=== PATIENT | male | born 1985 | race Caucasian/White ===

== ENCOUNTER → 2020-04-15 | Outpatient (CLI) | payer BC ==
--- NOTE | 2020-04-15 16:22 | Diagnostic Imaging Report ---
EXAMINATION: CHEST 2 VIEWS INDICATION: Bronchitis COMPARISON: None FINDINGS: LINES/TUBES:None LUNGS:The lungs are moderately inflated. Mild right perihilar and left lung base linear opacities. PLEURA:No pleural effusion or pneumothorax. MEDIASTINUM:The cardiomediastinal silhouette appears normal in size and shape. BONES/SOFT TISSUES:No acute osseous injury. ABDOMEN:No free air under the diaphragm. IMPRESSION: Mild right perihilar and left lung base opacities, most likely subsegmental atelectasis. Signed by: Lv Murray MD on 04/15/2020 4:18 PM
== END ==
LOC: RAD 15:18
PROVIDERS: ATTEND Family Medicine
DX: J20.9 Acute bronchitis, unspecified (principal)
CPT/HCPCS: 71046

== ENCOUNTER → 2020-05-15 | Outpatient (CLI) | payer BC ==
--- NOTE | 2020-05-15 13:04 | Diagnostic Imaging Report ---
EXAMINATION: CHEST 2 VIEWS INDICATION: Bronchitis COMPARISON: Chest radiograph 04/15/2020 FINDINGS: LINES/TUBES:None LUNGS:The lungs are well-inflated. No focal consolidation or pulmonary edema. PLEURA:No pleural effusion or pneumothorax. MEDIASTINUM:The cardiomediastinal silhouette appears normal in size and shape. BONES/SOFT TISSUES:No acute osseous injury. ABDOMEN:No free air under the diaphragm. IMPRESSION: No focal pneumonia or pulmonary edema. Signed by: Lv Murray MD on 05/15/2020 1:00 PM
== END ==
LOC: RAD 12:05
PROVIDERS: ATTEND Family Medicine
DX: J40 Bronchitis, not specified as acute or chronic (principal)
CPT/HCPCS: 71046

== ENCOUNTER → 2020-08-14 | Outpatient (CLI) | payer BC ==
--- NOTE | 2020-08-15 10:23 | Diagnostic Imaging Report ---
Modified barium swallow exam with speech pathology service CLINICAL HISTORY: Seroma history coughing with swallowing. Concern for dysphagia or aspiration. Fluoro Time: 0.75 min. Dose: 5.5 mGy IMPRESSION: Please see the speech pathology service report for details. Barium contrast of multiple consistencies is given to the patient to swallow. Fluoroscopic observation is performed during swallowing. No aspiration or penetration is noted. Trace vallecular and piriform sinus residue is noted. Please see speech pathologist report for further details. Signed by: Dudley Allen MD on 08/15/2020 10:20 AM
== END ==
LOC: DX 11:28
PROVIDERS: ATTEND Internal Medicine Cardiovascular Disease
DX: R13.12 Dysphagia, oropharyngeal phase (principal); Z11.59 Encounter for screening for other viral diseases
CPT/HCPCS: 74230; 92611; U0002

== ENCOUNTER → 2021-05-19 | Outpatient (CLI) | payer BC ==
[~2021-05-19] MED LIST: GADOBENATE DIMEGLUMINE 1 ML IV ONE; SODIUM CHLORIDE 0.9% 50ML 50 ML ONE
== END ==
LOC: MRI 05-15 13:27
PROVIDERS: ATTEND Family Medicine
DX: R19.00 Intra-abdominal and pelvic swelling, mass and lump, unspecified site (principal)
CPT/HCPCS: 74183; A9577

== ENCOUNTER → 2022-08-07 | Outpatient (CLI) | payer BC | LOC: RAD 11:27 | PROVIDERS: ATTEND Family Medicine | DX: J40 Bronchitis, not specified as acute or chronic (principal) | CPT/HCPCS: 71046 ==